=== PATIENT | female | born 1950 | race African-American/Black ===

== ENCOUNTER 2016-09-17 16:30 | Inpatient (IN) | payer MEDICARE, MEDICAID ==
[~2016-09-17] VITALS: Ht 165.1 cm; Wt 109.8 kg
[~2016-09-17 16:30] MED LIST: ALPR0.5T96 PO; BUDE6HFA IH; DIGO250T4 PO; DILT240C91 PO; DIPH25CA83 PO; GABA-531 PO; HYDR-4005 PO; HYDR-519 PO; LISI10TA5 PO; RIVA20TA PO
[2016-09-17 17:44] VITALS: BP 122/78
[2016-09-17] MEDS ORDERED: ONDANSETRON HCL 4MG/2ML VIAL IV PRN (18:00)
[2016-09-17] MEDS ORDERED: IPRATROPIUM/ALBUTEROL 0.5-3(2.5)MG/3ML NEB HHN PRN (18:00)
[2016-09-17 18:22] VITALS: BP 122/78
[2016-09-17 20:00] VITALS: BP 108/81
[2016-09-17] MEDS: BUDESONIDE 0.5MG/2ML NEB HHN SCH (20:07)
[2016-09-17] MEDS: IPRATROPIUM/ALBUTEROL 0.5-3(2.5)MG/3ML NEB HHN SCH (20:08)
[2016-09-17 20:20] VITALS: BP 126/88
[2016-09-17] MEDS: FAMOTIDINE 20MG TABLET PO SCH (20:20)
[2016-09-17] MEDS: HYDROCODONE/ACETAMINOPHEN 10/325MG TABLET PO PRN (20:23)
[2016-09-17] MEDS: HYDRALAZINE HCL 50MG TABLET PO SCH (22:12)
[2016-09-17 22:15] VITALS: BP 126/91
[2016-09-17] MEDS: DILTIAZEM HCL 90MG TABLET PO SCH (22:58)
[2016-09-17 23:00] VITALS: BP 113/79
[2016-09-18] MEDS: IPRATROPIUM/ALBUTEROL 0.5-3(2.5)MG/3ML NEB HHN SCH ×6 (00:41→20:24)
[2016-09-18] MEDS: DILTIAZEM HCL 90MG TABLET PO SCH ×3 (05:50→22:00)
[2016-09-18] MEDS: HYDROCODONE/ACETAMINOPHEN 10/325MG TABLET PO PRN ×2 (05:51→22:18)
[2016-09-18 08:00] VITALS: BP 113/73
[2016-09-18] MEDS: HYDRALAZINE HCL 50MG TABLET PO SCH ×2 (08:30→21:00)
[2016-09-18] MEDS ORDERED: DIPHENHYDRAMINE 50MG CAPSULE PO PRN (08:30)
[2016-09-18] MEDS: FUROSEMIDE 40MG TABLET PO SCH (08:53)
[2016-09-18] MEDS: PREDNISONE 20MG TABLET PO SCH ×2 (08:53→17:00)
[2016-09-18] MEDS: FAMOTIDINE 20MG TABLET PO SCH ×2 (08:53→22:16)
[2016-09-18] MEDS: DOCUSATE SODIUM 100MG CAPSULE PO SCH ×2 (08:53→17:00)
[2016-09-18] MEDS: BUDESONIDE 0.5MG/2ML NEB HHN SCH ×2 (09:07→20:24)
[2016-09-18] MEDS: MORPHINE SULFATE 2 MG/ML CPJ (NOT FOR IM USE) IV PRN (11:24)
[2016-09-18] MEDS: RIVAROXABAN 20 MG TABLET PO SCH (17:00)
[2016-09-18 20:36] VITALS: BP 100/73
[2016-09-19] MEDS: IPRATROPIUM/ALBUTEROL 0.5-3(2.5)MG/3ML NEB HHN SCH ×7 (00:19→23:59)
[2016-09-19] MEDS: BUDESONIDE 0.5MG/2ML NEB HHN SCH ×3 (06:00→20:19)
[2016-09-19] MEDS: DILTIAZEM HCL 90MG TABLET PO SCH ×3 (06:00→22:48)
[2016-09-19 08:00] VITALS: BP 110/70
[2016-09-19] MEDS: FUROSEMIDE 40MG TABLET PO SCH (09:08)
[2016-09-19] MEDS: HYDRALAZINE HCL 50MG TABLET PO SCH ×2 (09:08→22:36)
[2016-09-19] MEDS: DOCUSATE SODIUM 100MG CAPSULE PO SCH ×2 (09:08→17:24)
[2016-09-19] MEDS: PREDNISONE 20MG TABLET PO SCH ×2 (09:08→17:24)
[2016-09-19] MEDS: FAMOTIDINE 20MG TABLET PO SCH ×2 (09:08→22:49)
[2016-09-19] MEDS: MORPHINE SULFATE 2 MG/ML CPJ (NOT FOR IM USE) IV PRN ×2 (11:40→23:00)
[2016-09-19] MEDS: RIVAROXABAN 20 MG TABLET PO SCH (17:24)
[2016-09-19] MEDS: HYDROCODONE/ACETAMINOPHEN 10/325MG TABLET PO PRN (17:25)
[2016-09-19 20:00] VITALS: BP 122/82
[2016-09-20] MEDS: IPRATROPIUM/ALBUTEROL 0.5-3(2.5)MG/3ML NEB HHN SCH ×5 (03:37→21:12)
[2016-09-20] MEDS: DILTIAZEM HCL 90MG TABLET PO SCH ×3 (05:33→21:11)
[2016-09-20 08:00] VITALS: BP 113/84
[2016-09-20] MEDS: BUDESONIDE 0.5MG/2ML NEB HHN SCH ×2 (08:15→21:13)
[2016-09-20] MEDS: FAMOTIDINE 20MG TABLET PO SCH ×2 (09:03→21:10)
[2016-09-20] MEDS: DOCUSATE SODIUM 100MG CAPSULE PO SCH ×2 (09:03→17:12)
[2016-09-20] MEDS: HYDRALAZINE HCL 50MG TABLET PO SCH ×2 (09:03→21:00)
[2016-09-20] MEDS: FUROSEMIDE 40MG TABLET PO SCH (09:03)
[2016-09-20] MEDS: PREDNISONE 20MG TABLET PO SCH ×2 (09:03→17:12)
[2016-09-20] MEDS: LACTULOSE 20G/30ML UDC PO PRN (09:04)
[2016-09-20] MEDS: MORPHINE SULFATE 2 MG/ML CPJ (NOT FOR IM USE) IV PRN ×2 (09:23→23:10)
[2016-09-20] MEDS: HYDROCODONE/ACETAMINOPHEN 10/325MG TABLET PO PRN (12:34)
[2016-09-20] MEDS: NA PHOS,M-B/NA PHOS,DI-BA ENEMA 118ML PR PRN (16:14)
[2016-09-20] MEDS: RIVAROXABAN 20 MG TABLET PO SCH (17:12)
[2016-09-20 20:00] VITALS: BP 98/71
[2016-09-20 23:12] VITALS: BP 117/79
[2016-09-21] MEDS: IPRATROPIUM/ALBUTEROL 0.5-3(2.5)MG/3ML NEB HHN SCH ×7 (00:13→21:10)
[2016-09-21] MEDS: DILTIAZEM HCL 90MG TABLET PO SCH ×3 (05:33→21:58)
[2016-09-21] MEDS: BUDESONIDE 0.5MG/2ML NEB HHN SCH ×2 (07:45→21:10)
[2016-09-21 08:00] VITALS: BP 107/71
[2016-09-21] MEDS: DOCUSATE SODIUM 100MG CAPSULE PO SCH ×2 (10:33→17:15)
[2016-09-21] MEDS: PREDNISONE 20MG TABLET PO SCH ×2 (10:33→17:15)
[2016-09-21] MEDS: FAMOTIDINE 20MG TABLET PO SCH ×2 (10:33→21:57)
[2016-09-21] MEDS: FUROSEMIDE 40MG TABLET PO SCH (10:34)
[2016-09-21] MEDS: HYDROCODONE/ACETAMINOPHEN 10/325MG TABLET PO PRN (10:35)
[2016-09-21] MEDS: HYDRALAZINE HCL 50MG TABLET PO SCH ×2 (11:25→21:00)
[2016-09-21] MEDS: RIVAROXABAN 20 MG TABLET PO SCH (17:15)
[2016-09-21 20:00] VITALS: BP 99/64
[2016-09-21] MEDS: MIRTAZAPINE 15MG TABLET PO SCH (21:57)
[2016-09-22] MEDS: IPRATROPIUM/ALBUTEROL 0.5-3(2.5)MG/3ML NEB HHN SCH ×6 (00:53→21:00)
[2016-09-22] MEDS: DILTIAZEM HCL 90MG TABLET PO SCH ×3 (06:00→22:00)
[2016-09-22 08:00] VITALS: BP 110/74
[2016-09-22] MEDS: HYDRALAZINE HCL 50MG TABLET PO SCH ×2 (08:42→20:29)
[2016-09-22] MEDS: DOCUSATE SODIUM 100MG CAPSULE PO SCH ×2 (08:43→16:57)
[2016-09-22] MEDS: PREDNISONE 20MG TABLET PO SCH ×2 (08:43→16:57)
[2016-09-22] MEDS: FAMOTIDINE 20MG TABLET PO SCH ×2 (08:43→20:28)
[2016-09-22] MEDS: FUROSEMIDE 40MG TABLET PO SCH (08:43)
[2016-09-22] MEDS: HYDROCODONE/ACETAMINOPHEN 10/325MG TABLET PO PRN ×3 (08:44→20:30)
[2016-09-22] MEDS: RIVAROXABAN 20 MG TABLET PO SCH (16:56)
[2016-09-22 20:00] VITALS: BP 130/95
[2016-09-22] MEDS: MIRTAZAPINE 15MG TABLET PO SCH (20:28)
[2016-09-22] MEDS: BUDESONIDE 0.5MG/2ML NEB HHN SCH (21:01)
[2016-09-23] MEDS: IPRATROPIUM/ALBUTEROL 0.5-3(2.5)MG/3ML NEB HHN SCH ×6 (00:55→19:57)
[2016-09-23] MEDS: HYDROCODONE/ACETAMINOPHEN 10/325MG TABLET PO PRN ×4 (04:02→22:04)
[2016-09-23] MEDS: BUDESONIDE 0.5MG/2ML NEB HHN SCH ×2 (07:25→19:56)
[2016-09-23 08:00] VITALS: BP 114/82
[2016-09-23] MEDS: PREDNISONE 20MG TABLET PO SCH ×2 (08:36→17:10)
[2016-09-23] MEDS: FAMOTIDINE 20MG TABLET PO SCH ×2 (08:36→22:03)
[2016-09-23] MEDS: FUROSEMIDE 40MG TABLET PO SCH (08:36)
[2016-09-23] MEDS: DOCUSATE SODIUM 100MG CAPSULE PO SCH ×2 (08:36→17:10)
[2016-09-23] MEDS: HYDRALAZINE HCL 50MG TABLET PO SCH ×2 (09:00→21:00)
[2016-09-23] MEDS: MORPHINE SULFATE 2 MG/ML CPJ (NOT FOR IM USE) IV PRN ×2 (13:08→13:59)
[2016-09-23] MEDS: DILTIAZEM HCL 90MG TABLET PO SCH ×3 (14:53→22:00)
[2016-09-23] MEDS: RIVAROXABAN 20 MG TABLET PO SCH (17:10)
[2016-09-23 20:00] VITALS: BP 93/64
[2016-09-23] MEDS: MIRTAZAPINE 15MG TABLET PO SCH (22:03)
[2016-09-24] MEDS: IPRATROPIUM/ALBUTEROL 0.5-3(2.5)MG/3ML NEB HHN SCH ×6 (00:27→20:59)
[2016-09-24] MEDS: DILTIAZEM HCL 90MG TABLET PO SCH ×3 (06:00→21:55)
[2016-09-24] MEDS: BUDESONIDE 0.5MG/2ML NEB HHN SCH ×2 (07:36→20:59)
[2016-09-24 08:00] VITALS: BP 118/90
[2016-09-24] MEDS: PREDNISONE 20MG TABLET PO SCH ×2 (09:02→16:41)
[2016-09-24] MEDS: DOCUSATE SODIUM 100MG CAPSULE PO SCH ×2 (09:02→16:41)
[2016-09-24] MEDS: HYDRALAZINE HCL 50MG TABLET PO SCH ×2 (09:03→21:00)
[2016-09-24] MEDS: FUROSEMIDE 40MG TABLET PO SCH (09:03)
[2016-09-24] MEDS: FAMOTIDINE 20MG TABLET PO SCH ×2 (09:03→21:54)
[2016-09-24] MEDS: HYDROCODONE/ACETAMINOPHEN 10/325MG TABLET PO PRN ×3 (09:04→20:33)
[2016-09-24] MEDS: RIVAROXABAN 20 MG TABLET PO SCH (16:41)
[2016-09-24 20:00] VITALS: BP 114/84
[2016-09-24] MEDS: MIRTAZAPINE 15MG TABLET PO SCH (21:53)
[2016-09-25] MEDS: IPRATROPIUM/ALBUTEROL 0.5-3(2.5)MG/3ML NEB HHN SCH ×6 (00:45→21:05)
[2016-09-25] MEDS: LACTULOSE 20G/30ML UDC PO PRN (01:46)
[2016-09-25] MEDS: DILTIAZEM HCL 90MG TABLET PO SCH ×3 (06:28→22:00)
[2016-09-25] MEDS: BUDESONIDE 0.5MG/2ML NEB HHN SCH ×2 (07:29→21:05)
[2016-09-25 08:00] VITALS: BP 121/80
[2016-09-25] MEDS: FUROSEMIDE 40MG TABLET PO SCH (09:15)
[2016-09-25] MEDS: HYDRALAZINE HCL 50MG TABLET PO SCH ×2 (09:15→21:00)
[2016-09-25] MEDS: HYDROCODONE/ACETAMINOPHEN 10/325MG TABLET PO PRN ×3 (09:15→22:18)
[2016-09-25] MEDS: DOCUSATE SODIUM 100MG CAPSULE PO SCH ×2 (09:15→17:36)
[2016-09-25] MEDS: FAMOTIDINE 20MG TABLET PO SCH ×2 (09:15→22:15)
[2016-09-25] MEDS: PREDNISONE 20MG TABLET PO SCH ×2 (09:15→17:36)
[2016-09-25] MEDS: NA PHOS,M-B/NA PHOS,DI-BA ENEMA 118ML PR PRN (14:32)
[2016-09-25] MEDS: RIVAROXABAN 20 MG TABLET PO SCH (17:36)
[2016-09-25 20:00] VITALS: BP 113/85
[2016-09-25] MEDS: MIRTAZAPINE 15MG TABLET PO SCH (22:15)
[2016-09-26] MEDS: IPRATROPIUM/ALBUTEROL 0.5-3(2.5)MG/3ML NEB HHN SCH ×6 (00:22→19:53)
[2016-09-26] MEDS: DILTIAZEM HCL 90MG TABLET PO SCH ×3 (06:12→21:38)
[2016-09-26 08:00] VITALS: BP 95/59
[2016-09-26] MEDS: DOCUSATE SODIUM 100MG CAPSULE PO SCH ×2 (08:09→17:29)
[2016-09-26] MEDS: PREDNISONE 20MG TABLET PO SCH ×2 (08:09→17:30)
[2016-09-26] MEDS: FUROSEMIDE 40MG TABLET PO SCH (08:09)
[2016-09-26] MEDS: FAMOTIDINE 20MG TABLET PO SCH ×2 (08:09→21:38)
[2016-09-26] MEDS: BUDESONIDE 0.5MG/2ML NEB HHN SCH ×2 (08:11→19:53)
[2016-09-26] MEDS: HYDRALAZINE HCL 50MG TABLET PO SCH ×2 (09:00→21:37)
[2016-09-26] MEDS: HYDROCODONE/ACETAMINOPHEN 10/325MG TABLET PO PRN ×3 (09:06→23:31)
[2016-09-26] MEDS: RIVAROXABAN 20 MG TABLET PO SCH (17:30)
[2016-09-26 20:00] VITALS: BP 125/79
[2016-09-26 21:02] LABS: HEMATOCRIT. 37.1 % (36.0-48.0); HEMOGLOBIN. 11.8 g/dL (12.0-16.0); MEAN CORPUSCULAR HGB CONC 31.7 g/dL (31.0-37.0); MEAN CORPUSCULAR VOLUME 78.8 fL (81.0-99.0); MEAN PLATELET VOLUME 8.5 fl (7.4-10.4); PLATELET 381 x1000/uL (130-400); RED BLOOD CELL COUNT 4.71 mill/uL (4.2-5.4); RED CELL DISTRIBUTION WIDTH 16.4 % (11.6-14.6); WHITE BLOOD COUNT 27.8 x1000/uL (4.5-11.0)
[2016-09-26 21:08] LABS: DIFFERENTIAL COMMENT 1
[2016-09-26 21:17] LABS: ANION GAP 13; CALCIUM 8.2 mg/dL (8.5-10.1); CARBON DIOXIDE 33 mEq/L (21-32); CHLORIDE 94 mEq/L (98-107); INDEX HEMOLYSI 1 (1-3); INDEX ICTERIC 1 (1-4); INDEX LIPEMIC 1 (1-3); UREA NITROGEN BLOOD 26 mg/dL (7-21); eGFR > 60 mL/min (>60)
[2016-09-26 21:36] LABS: ANISOCYTOSIS 1+; PLATELET ESTIMATE NORMAL
[2016-09-26 21:38] LABS: HYPOCHROMASIA 1+
[2016-09-26] MEDS: MIRTAZAPINE 15MG TABLET PO SCH (21:38)
[2016-09-27] MEDS: IPRATROPIUM/ALBUTEROL 0.5-3(2.5)MG/3ML NEB HHN SCH ×7 (00:14→23:59)
[2016-09-27] MEDS: DILTIAZEM HCL 90MG TABLET PO SCH ×3 (06:00→21:14)
[2016-09-27] MEDS: BUDESONIDE 0.5MG/2ML NEB HHN SCH ×2 (07:37→19:53)
[2016-09-27 08:00] VITALS: BP 106/68
[2016-09-27] MEDS: HYDROCODONE/ACETAMINOPHEN 10/325MG TABLET PO PRN ×2 (08:13→13:27)
[2016-09-27] MEDS: FUROSEMIDE 40MG TABLET PO SCH (08:13)
[2016-09-27] MEDS: DOCUSATE SODIUM 100MG CAPSULE PO SCH ×2 (08:13→17:23)
[2016-09-27] MEDS: PREDNISONE 20MG TABLET PO SCH ×2 (08:13→17:24)
[2016-09-27] MEDS: FAMOTIDINE 20MG TABLET PO SCH ×2 (08:13→20:19)
[2016-09-27] MEDS: HYDRALAZINE HCL 50MG TABLET PO SCH ×2 (08:16→20:19)
[2016-09-27] MEDS ORDERED: PIPERACILLIN/TAZ 3.375G PREMIX 50 ML IV SCH ×2 (12:30→16:00)
[2016-09-27] MEDS ORDERED: DEXTROSE 5% IV NR (13:00)
[2016-09-27] MEDS ORDERED: WATER IV NR (13:00)
[2016-09-27] MEDS ORDERED: VANCOMYCIN IV NR (13:00)
[2016-09-27] MEDS: RIVAROXABAN 20 MG TABLET PO SCH (17:24)
[2016-09-27 20:00] VITALS: BP 106/73
[2016-09-27] MEDS: MIRTAZAPINE 15MG TABLET PO SCH (20:19)
[2016-09-28] MEDS: PIPERACILLIN/TAZ 3.375G PREMIX 50 ML IV SCH ×4 (00:45→17:13)
[2016-09-28 00:56] VITALS: BP 98/72
[2016-09-28] MEDS ORDERED: VANCOMYCIN 750 MG PREMIX 150 ML IV SCH (01:00)
[2016-09-28] MEDS: HYDROCODONE/ACETAMINOPHEN 10/325MG TABLET PO PRN (01:58)
[2016-09-28] MEDS: IPRATROPIUM/ALBUTEROL 0.5-3(2.5)MG/3ML NEB HHN SCH ×5 (04:50→20:45)
[2016-09-28 05:04] LABS: CLARITY URINE CLEAR (CLEAR); COLOR URINE YELLOW (YELLOW); GLUCOSE URINE NEGATIVE (NEGATIVE); KETONES URINE NEGATIVE (NEGATIVE); LEUKOCYTE ESTERASE URINE NEGATIVE (NEGATIVE); NITRITE URINE NEGATIVE (NEGATIVE); OCCULT BLOOD URINE NEGATIVE (NEGATIVE); PROTEIN URINE TRACE (NEGATIVE); SPECIFIC GRAVITY URINE 1.024 (1.005-1.030)
[2016-09-28] MEDS: DILTIAZEM HCL 90MG TABLET PO SCH ×4 (05:39→22:00)
[2016-09-28 05:51] LABS: BACTERIA URINE 1+; SQUAMOUS EPITHELIAL CELL URINE 1+ /lpf (RARE/1+)
[2016-09-28 06:14] LABS: HEMATOCRIT. 37.4 % (36.0-48.0); HEMOGLOBIN. 12.1 g/dL (12.0-16.0); MEAN CORPUSCULAR HEMOGLOBIN 25.2 pg (28.0-32.0); MEAN CORPUSCULAR HGB CONC 32.2 g/dL (31.0-37.0); MEAN CORPUSCULAR VOLUME 78.2 fL (81.0-99.0); MEAN PLATELET VOLUME 8.9 fl (7.4-10.4); PLATELET 342 x1000/uL (130-400); RED BLOOD CELL COUNT 4.78 mill/uL (4.2-5.4); RED CELL DISTRIBUTION WIDTH 16.4 % (11.6-14.6); WHITE BLOOD COUNT 32.6 x1000/uL (4.5-11.0)
[2016-09-28] MEDS: BUDESONIDE 0.5MG/2ML NEB HHN SCH ×2 (07:26→20:45)
[2016-09-28 07:30] LABS: ANION GAP 15; CALCIUM 8.3 mg/dL (8.5-10.1); CARBON DIOXIDE 28 mEq/L (21-32); CHLORIDE 94 mEq/L (98-107); INDEX HEMOLYSI 1 (1-3); INDEX ICTERIC 1 (1-4); INDEX LIPEMIC 1 (1-3); UREA NITROGEN BLOOD 15 mg/dL (7-21); eGFR > 60 mL/min (>60)
[2016-09-28 07:59] LABS: DIFFERENTIAL COMMENT 1
[2016-09-28 08:00] VITALS: BP 99/61
[2016-09-28] MEDS: FAMOTIDINE 20MG TABLET PO SCH ×2 (08:10→22:04)
[2016-09-28] MEDS: PREDNISONE 20MG TABLET PO SCH (08:10)
[2016-09-28] MEDS: DOCUSATE SODIUM 100MG CAPSULE PO SCH ×2 (08:11→17:00)
[2016-09-28] MEDS: FUROSEMIDE 40MG TABLET PO SCH (08:11)
[2016-09-28] MEDS: VANCOMYCIN 1250MG in DEXTROSE 5% WATER 250ML IV SCH (08:12)
[2016-09-28] MEDS: HYDRALAZINE HCL 50MG TABLET PO SCH ×2 (08:23→21:00)
[2016-09-28 16:59] LABS: PLATELET ESTIMATE NORMAL
[2016-09-28] MEDS: RIVAROXABAN 20 MG TABLET PO SCH (17:13)
[2016-09-28] MEDS: ACETAMINOPHEN 325MG TABLET PO PRN ×2 (17:13→22:38)
[2016-09-28 20:48] VITALS: BP 112/80
[2016-09-28] MEDS: MIRTAZAPINE 15MG TABLET PO SCH (22:03)
[2016-09-29] MEDS: PIPERACILLIN/TAZ 3.375G PREMIX 50 ML IV SCH ×2 (00:27→06:02)
[2016-09-29] MEDS: IPRATROPIUM/ALBUTEROL 0.5-3(2.5)MG/3ML NEB HHN SCH ×4 (00:34→11:10)
[2016-09-29] MEDS: HYDROCODONE/ACETAMINOPHEN 10/325MG TABLET PO PRN (04:39)
[2016-09-29 05:55] LABS: HEMATOCRIT. 37.7 % (36.0-48.0); HEMOGLOBIN. 12.1 g/dL (12.0-16.0); MEAN CORPUSCULAR HEMOGLOBIN 25.2 pg (28.0-32.0); MEAN CORPUSCULAR VOLUME 78.8 fL (81.0-99.0); PLATELET 296 x1000/uL (130-400); RED BLOOD CELL COUNT 4.79 mill/uL (4.2-5.4); RED CELL DISTRIBUTION WIDTH 16.3 % (11.6-14.6); WHITE BLOOD COUNT 25.3 x1000/uL (4.5-11.0)
[2016-09-29] MEDS: DILTIAZEM HCL 90MG TABLET PO SCH (06:00)
[2016-09-29 06:09] LABS: CHLORIDE 94 mEq/L (98-107); INDEX HEMOLYSI 1 (1-3); INDEX ICTERIC 1 (1-4); INDEX LIPEMIC 1 (1-3)
[2016-09-29 06:13] LABS: ANION GAP 14; CALCIUM 8.2 mg/dL (8.5-10.1); CARBON DIOXIDE 29 mEq/L (21-32); UREA NITROGEN BLOOD 16 mg/dL (7-21); eGFR > 60 mL/min (>60)
[2016-09-29 07:08] LABS: DIFFERENTIAL COMMENT 1
[2016-09-29] MEDS: BUDESONIDE 0.5MG/2ML NEB HHN SCH (07:12)
[2016-09-29 08:00] VITALS: BP 107/71
[2016-09-29] MEDS: VANCOMYCIN 1250MG in DEXTROSE 5% WATER 250ML IV SCH (08:05)
[2016-09-29] MEDS: FAMOTIDINE 20MG TABLET PO SCH (08:06)
[2016-09-29] MEDS: HYDRALAZINE HCL 50MG TABLET PO SCH (08:06)
[2016-09-29] MEDS: FUROSEMIDE 40MG TABLET PO SCH (08:06)
[2016-09-29] MEDS: DOCUSATE SODIUM 100MG CAPSULE PO SCH (08:06)
[2016-09-29] MEDS ORDERED: PREDNISONE 20MG TABLET PO SCH (09:00)
[2016-09-29] MEDS ORDERED: PREDNISONE 20MG TABLET PO NR (10:45)
[2016-09-29 10:55] LABS: ANISOCYTOSIS 1+; PLATELET ESTIMATE NORMAL
[2016-09-29 12:55] VITALS: BP 107/71
[2016-09-29] MEDS: ACETAMINOPHEN 325MG TABLET PO PRN (13:40)
[2016-09-30] MEDS ORDERED: PREDNISONE 20MG TABLET PO SCH (09:00)
== END 2016-09-29 15:02 | disposition short-term general hospital (02) | DRG 551 ==
PROVIDERS: ADMIT Psychiatry & Neurology Neurology; ATTEND Internal Medicine
DX: M48.06 Spinal stenosis, lumbar region (principal); J96.00 Acute respiratory failure, unspecified whether with hypoxia or hypercapnia; Z68.41 Body mass index [BMI] 40.0-44.9, adult; J44.1 Chronic obstructive pulmonary disease with (acute) exacerbation; I50.42 Chronic combined systolic (congestive) and diastolic (congestive) heart failure; I47.2 Ventricular tachycardia; T81.4XXA Infection following a procedure, initial encounter; L03.312 Cellulitis of back [any part except buttock and flank]; E44.0 Moderate protein-calorie malnutrition; E66.2 Morbid (severe) obesity with alveolar hypoventilation; I48.2 Chronic atrial fibrillation; F41.9 Anxiety disorder, unspecified; I11.0 Hypertensive heart disease with heart failure; F14.10 Cocaine abuse, uncomplicated; R26.9 Unspecified abnormalities of gait and mobility; G89.29 Other chronic pain; H52.209 Unspecified astigmatism, unspecified eye; M54.10 Radiculopathy, site unspecified; R74.0 Nonspecific elevation of levels of transaminase and lactic acid dehydrogenase [LDH]; E11.9 Type 2 diabetes mellitus without complications; M48.07 Spinal stenosis, lumbosacral region; B95.61 Methicillin susceptible Staphylococcus aureus infection as the cause of diseases classified elsewhere; Z90.49 Acquired absence of other specified parts of digestive tract; Z98.1 Arthrodesis status; Y83.8 Other surgical procedures as the cause of abnormal reaction of the patient, or of later complication, without mention of misadventure at the time of the procedure
CPT/HCPCS: 36415; 71010; 74000; 80048; 81001; 83605; 84145; 85025; 87040; 87070; 87077; 87086; 87205; 93970; 94640; 94664; 97110; 97116; 97162; 97166; 97530; 97535; A6261; J2270; J2405; J2543; J3370; J7030; J7050; J7060; J7512; J7620; J7626; Q0163

== ENCOUNTER 2016-09-29 16:00 | Inpatient (IN) | payer MEDICARE, MEDICAID ==
[~2016-09-29] VITALS: Ht 165.1 cm; Wt 117.5 kg
[2016-09-29 14:55] VITALS: BP 133/94
[2016-09-29 16:00] VITALS: BP 133/94
[~2016-09-29 16:00] MED LIST changes: -ALPR0.5T96 PO; -BUDE6HFA IH; -DIGO250T4 PO; -DIPH25CA83 PO; -GABA-531 PO; -HYDR-4005 PO; -LISI10TA5 PO
[2016-09-29] MEDS ORDERED: ALBUTEROL (0.083%) 2.5MG/3ML NEB HHN PRN (18:45)
[2016-09-29] MEDS ORDERED: DIPHENHYDRAMINE 50MG CAPSULE PO PRN (18:45)
[2016-09-29] MEDS ORDERED: ACETAMINOPHEN 325MG TABLET PO PRN (18:45)
[2016-09-29] MEDS ORDERED: LACTULOSE 20G/30ML UDC PO PRN (18:45)
[2016-09-29] MEDS: DOCUSATE SODIUM 100MG CAPSULE PO SCH (19:35)
[2016-09-29] MEDS: ONDANSETRON HCL 4MG/2ML VIAL IV PRN ×2 (19:35→20:05)
[2016-09-29 20:00] VITALS: BP 145/79
[2016-09-29] MEDS ORDERED: MIRTAZAPINE 15MG TABLET PO SCH (21:00)
[2016-09-29] MEDS: FAMOTIDINE 20MG TABLET PO SCH (22:47)
[2016-09-29] MEDS: HYDRALAZINE HCL 50MG TABLET PO SCH (22:47)
[2016-09-29] MEDS: DILTIAZEM HCL 90MG TABLET PO SCH (22:48)
[2016-09-29] MEDS: RIVAROXABAN 20 MG TABLET PO SCH (22:48)
[2016-09-29] MEDS: HYDROCODONE/ACETAMINOPHEN 10/325MG TABLET PO PRN (22:53)
[2016-09-29] MEDS: PIPERACILLIN/TAZ 3.375G PREMIX 50 ML IV SCH (23:31)
[2016-09-30] VITALS: BP 123/85
[2016-09-30] MEDS: PIPERACILLIN/TAZ 3.375G PREMIX 50 ML IV SCH ×2 (03:53→10:11)
[2016-09-30 04:00] VITALS: BP 111/71
[2016-09-30] MEDS: HYDROCODONE/ACETAMINOPHEN 10/325MG TABLET PO PRN ×2 (04:37→10:11)
[2016-09-30] MEDS: DILTIAZEM HCL 90MG TABLET PO SCH (06:00)
[2016-09-30 06:50] LABS: BASOPHILS % 0.1 % (0.0-2.0); DIFFERENTIAL COMMENT 0; EOSINOPHILS % 0.3 % (0.0-5.0); HEMOGLOBIN. 11.9 g/dL (12.0-16.0); LYMPHOCYTES % 7.2 % (20.0-50.0); MEAN CORPUSCULAR HEMOGLOBIN 25.2 pg (28.0-32.0); MEAN CORPUSCULAR HGB CONC 32.1 g/dL (31.0-37.0); MEAN CORPUSCULAR VOLUME 78.6 fL (81.0-99.0); MEAN PLATELET VOLUME 9.1 fl (7.4-10.4); MONOCYTES % 9.6 % (2.0-8.0); NEUTROPHILS % 82.8 % (40.0-76.0); PLATELET 313 x1000/uL (130-400); RED BLOOD CELL COUNT 4.72 mill/uL (4.2-5.4); RED CELL DISTRIBUTION WIDTH 16.5 % (11.6-14.6); WHITE BLOOD COUNT 19.1 x1000/uL (4.5-11.0)
[2016-09-30 07:20] LABS: ANION GAP 14; CALCIUM 8.3 mg/dL (8.5-10.1); CARBON DIOXIDE 32 mEq/L (21-32); CHLORIDE 93 mEq/L (98-107); INDEX HEMOLYSI 1 (1-3); INDEX ICTERIC 1 (1-4); INDEX LIPEMIC 1 (1-3); UREA NITROGEN BLOOD 17 mg/dL (7-21); eGFR > 60 mL/min (>60)
[2016-09-30 08:00] VITALS: BP_SYST 117; BP_SYST 119; BP_DIAS 76; BP_DIAS 92
[2016-09-30] MEDS ORDERED: POTASSIUM CHLORIDE 20MEQ TABLET SR PO NR (08:37)
[2016-09-30] MEDS ORDERED: FUROSEMIDE 40MG TABLET PO SCH (09:00)
[2016-09-30] MEDS ORDERED: PREDNISONE 20MG TABLET PO SCH (09:00)
[2016-09-30] MEDS ORDERED: VANCOMYCIN 1,250 MG in DEXT 5% WATER 250 ML IV SCH (09:00)
[2016-09-30] MEDS: HYDRALAZINE HCL 50MG TABLET PO SCH (10:09)
[2016-09-30] MEDS: FAMOTIDINE 20MG TABLET PO SCH (10:09)
[2016-09-30] MEDS: DOCUSATE SODIUM 100MG CAPSULE PO SCH (10:09)
[2016-09-30] MEDS: ONDANSETRON HCL 4MG/2ML VIAL IV PRN (10:11)
[2016-09-30 12:00] VITALS: BP 117/92
[2016-09-30 16:00] VITALS: BP 100/81
[2016-09-30] MEDS: RIVAROXABAN 20 MG TABLET PO SCH (18:11)
[2016-09-30 20:00] VITALS: BP 134/98
[2016-09-30] MEDS: MORPHINE SULFATE 2 MG/ML CPJ (NOT FOR IM USE) IV PRN (21:07)
[2016-10-01] VITALS: BP 137/80
[2016-10-01 04:00] VITALS: BP 141/88
[2016-10-01] MEDS: MORPHINE SULFATE 2 MG/ML CPJ (NOT FOR IM USE) IV PRN ×2 (04:08→21:43)
[2016-10-01 06:00] LABS: BASOPHILS % 0.1 % (0.0-2.0); DIFFERENTIAL COMMENT 0; EOSINOPHILS % 0.3 % (0.0-5.0); HEMATOCRIT. 36.5 % (36.0-48.0); HEMOGLOBIN. 11.8 g/dL (12.0-16.0); LYMPHOCYTES % 12.2 % (20.0-50.0); MEAN CORPUSCULAR HEMOGLOBIN 25.1 pg (28.0-32.0); MEAN CORPUSCULAR HGB CONC 32.2 g/dL (31.0-37.0); MEAN CORPUSCULAR VOLUME 77.8 fL (81.0-99.0); MEAN PLATELET VOLUME 9.4 fl (7.4-10.4); MONOCYTES % 10.4 % (2.0-8.0); PLATELET 353 x1000/uL (130-400); RED BLOOD CELL COUNT 4.69 mill/uL (4.2-5.4); RED CELL DISTRIBUTION WIDTH 16.3 % (11.6-14.6); WHITE BLOOD COUNT 14.7 x1000/uL (4.5-11.0)
[2016-10-01 06:30] LABS: ANION GAP 14; CALCIUM 7.9 mg/dL (8.5-10.1); CARBON DIOXIDE 31 mEq/L (21-32); CHLORIDE 93 mEq/L (98-107); INDEX HEMOLYSI 1 (1-3); INDEX ICTERIC 1 (1-4); INDEX LIPEMIC 1 (1-3); UREA NITROGEN BLOOD 19 mg/dL (7-21); eGFR > 60 mL/min (>60)
[2016-10-01 08:00] VITALS: BP 125/95
[2016-10-01] MEDS: PREDNISONE 10MG TABLET PO SCH (08:12)
[2016-10-01] MEDS ORDERED: VANCOMYCIN 1,250 MG in DEXT 5% WATER 250 ML IV SCH (09:00)
[2016-10-01 12:00] VITALS: BP 114/83
[2016-10-01 16:00] VITALS: BP 140/76
[2016-10-01] MEDS: RIVAROXABAN 20 MG TABLET PO SCH (17:27)
[2016-10-01 20:00] VITALS: BP 133/84
[2016-10-01] MEDS ORDERED: VANCOMYCIN 1250MG in DEXTROSE 5% WATER 250ML IV SCH (20:00)
[2016-10-01] MEDS: VANCOMYCIN 1 G PREMIX 200 ML IV SCH (21:42)
[2016-10-02] VITALS: BP 148/98
[2016-10-02] MEDS: MORPHINE SULFATE 2 MG/ML CPJ (NOT FOR IM USE) IV PRN ×3 (02:14→20:36)
[2016-10-02 04:00] VITALS: BP 116/73
[2016-10-02 08:00] VITALS: BP 134/84
[2016-10-02] MEDS: PREDNISONE 10MG TABLET PO SCH (08:46)
[2016-10-02] MEDS: VANCOMYCIN 1 G PREMIX 200 ML IV SCH ×2 (08:47→20:36)
[2016-10-02 12:00] VITALS: BP 136/80
[2016-10-02 16:00] VITALS: BP 139/87
[2016-10-02] MEDS: RIVAROXABAN 20 MG TABLET PO SCH (17:25)
[2016-10-02 20:00] VITALS: BP 128/86
[2016-10-03] VITALS: BP 139/82
[2016-10-03] MEDS: MORPHINE SULFATE 2 MG/ML CPJ (NOT FOR IM USE) IV PRN ×4 (03:28→20:59)
[2016-10-03 04:00] VITALS: BP 144/79
[2016-10-03 05:27] LABS: BASOPHILS % 0.4 % (0.0-2.0); DIFFERENTIAL COMMENT 0; EOSINOPHILS % 0.9 % (0.0-5.0); HEMATOCRIT. 37.9 % (36.0-48.0); HEMOGLOBIN. 12.2 g/dL (12.0-16.0); LYMPHOCYTES % 15.6 % (20.0-50.0); MEAN CORPUSCULAR HEMOGLOBIN 25.1 pg (28.0-32.0); MEAN CORPUSCULAR HGB CONC 32.3 g/dL (31.0-37.0); MEAN CORPUSCULAR VOLUME 77.8 fL (81.0-99.0); MEAN PLATELET VOLUME 8.8 fl (7.4-10.4); MONOCYTES % 11.7 % (2.0-8.0); NEUTROPHILS % 71.4 % (40.0-76.0); PLATELET 326 x1000/uL (130-400); RED BLOOD CELL COUNT 4.87 mill/uL (4.2-5.4); RED CELL DISTRIBUTION WIDTH 16.5 % (11.6-14.6); WHITE BLOOD COUNT 13.4 x1000/uL (4.5-11.0)
[2016-10-03 06:02] LABS: CHLORIDE 93 mEq/L (98-107); INDEX HEMOLYSI 1 (1-3); INDEX ICTERIC 1 (1-4); INDEX LIPEMIC 1 (1-3)
[2016-10-03 06:16] LABS: ANION GAP 16; CALCIUM 8.5 mg/dL (8.5-10.1); CARBON DIOXIDE 26 mEq/L (21-32); UREA NITROGEN BLOOD 11 mg/dL (7-21); eGFR > 60 mL/min (>60)
[2016-10-03 08:00] VITALS: BP 120/80
[2016-10-03] MEDS: PREDNISONE 10MG TABLET PO SCH (09:15)
[2016-10-03] MEDS: VANCOMYCIN 1 G PREMIX 200 ML IV SCH ×2 (09:15→20:58)
[2016-10-03] MEDS ORDERED: ACETAMINOPHEN 325MG TABLET PO PRN (10:15)
[2016-10-03] MEDS ORDERED: DIPHENHYDRAMINE 50MG CAPSULE PO PRN (10:15)
[2016-10-03] MEDS ORDERED: ALBUTEROL (0.083%) 2.5MG/3ML NEB HHN PRN (10:15)
[2016-10-03] MEDS ORDERED: POTASSIUM CHLORIDE 20MEQ TABLET SR PO NR (10:15)
[2016-10-03] MEDS: FUROSEMIDE 40MG TABLET PO SCH (10:55)
[2016-10-03 12:00] VITALS: BP 95/62
[2016-10-03] MEDS: DILTIAZEM HCL 90MG TABLET PO SCH ×2 (14:00→22:00)
[2016-10-03 16:00] VITALS: BP 111/69
[2016-10-03] MEDS: DOCUSATE SODIUM 100MG CAPSULE PO SCH (18:10)
[2016-10-03] MEDS: RIVAROXABAN 20 MG TABLET PO SCH (18:10)
[2016-10-03 20:00] VITALS: BP 107/71
[2016-10-03] MEDS: FAMOTIDINE 20MG TABLET PO SCH (20:58)
[2016-10-03] MEDS: MIRTAZAPINE 15MG TABLET PO SCH (20:58)
[2016-10-03] MEDS: HYDRALAZINE HCL 25MG TABLET PO SCH (21:00)
[2016-10-04] VITALS: BP 130/82
[2016-10-04] MEDS: MORPHINE SULFATE 2 MG/ML CPJ (NOT FOR IM USE) IV PRN ×2 (04:23→17:57)
[2016-10-04 06:25] LABS: HEMATOCRIT. 38.5 % (36.0-48.0); HEMOGLOBIN. 12.4 g/dL (12.0-16.0); MEAN CORPUSCULAR HEMOGLOBIN 25.2 pg (28.0-32.0); MEAN CORPUSCULAR HGB CONC 32.1 g/dL (31.0-37.0); MEAN CORPUSCULAR VOLUME 78.5 fL (81.0-99.0); PLATELET 352 x1000/uL (130-400); RED BLOOD CELL COUNT 4.91 mill/uL (4.2-5.4); RED CELL DISTRIBUTION WIDTH 16.4 % (11.6-14.6); WHITE BLOOD COUNT 14.1 x1000/uL (4.5-11.0)
[2016-10-04] MEDS: DILTIAZEM HCL 90MG TABLET PO SCH ×3 (06:58→22:00)
[2016-10-04 07:00] LABS: ANION GAP 13; CALCIUM 8.6 mg/dL (8.5-10.1); CARBON DIOXIDE 29 mEq/L (21-32); CHLORIDE 96 mEq/L (98-107); INDEX HEMOLYSI 1 (1-3); INDEX ICTERIC 1 (1-4); INDEX LIPEMIC 1 (1-3); UREA NITROGEN BLOOD 14 mg/dL (7-21); eGFR > 60 mL/min (>60)
[2016-10-04 07:59] LABS: DIFFERENTIAL COMMENT 1
[2016-10-04 08:00] VITALS: BP 129/69
[2016-10-04] MEDS: PREDNISONE 10MG TABLET PO SCH (09:36)
[2016-10-04] MEDS: FAMOTIDINE 20MG TABLET PO SCH ×2 (09:36→22:14)
[2016-10-04] MEDS: POTASSIUM CHLORIDE 20MEQ TABLET SR PO SCH (09:36)
[2016-10-04] MEDS: FUROSEMIDE 40MG TABLET PO SCH (09:36)
[2016-10-04] MEDS: DOCUSATE SODIUM 100MG CAPSULE PO SCH ×2 (09:36→17:56)
[2016-10-04] MEDS: VANCOMYCIN 1 G PREMIX 200 ML IV SCH ×2 (09:37→22:14)
[2016-10-04] MEDS: HYDRALAZINE HCL 25MG TABLET PO SCH ×2 (09:37→21:00)
[2016-10-04 12:00] VITALS: BP 103/62
[2016-10-04] MEDS ORDERED: NA PHOS,M-B/NA PHOS,DI-BA ENEMA 118ML PR NR (13:30)
[2016-10-04] MEDS: HYDROCODONE/ACETAMINOPHEN 10/325MG TABLET PO PRN (14:50)
[2016-10-04 16:00] VITALS: BP 111/60
[2016-10-04 16:14] LABS: PLATELET ESTIMATE NORMAL
[2016-10-04] MEDS: RIVAROXABAN 20 MG TABLET PO SCH (17:56)
[2016-10-04 20:00] VITALS: BP 88/71
[2016-10-04] MEDS: MIRTAZAPINE 15MG TABLET PO SCH (22:14)
[2016-10-05] VITALS (36 sets, daily range): BP systolic 94–155; BP diastolic 48–98
[2016-10-05] MEDS: MORPHINE SULFATE 2 MG/ML CPJ (NOT FOR IM USE) IV PRN ×4 (00:12→21:44)
[2016-10-05] MEDS: DILTIAZEM HCL 90MG TABLET PO SCH ×3 (05:50→22:02)
[2016-10-05 07:07] LABS: ANION GAP 13; CALCIUM 8.3 mg/dL (8.5-10.1); CARBON DIOXIDE 28 mEq/L (21-32); CHLORIDE 97 mEq/L (98-107); INDEX HEMOLYSI 3 (1-3); INDEX ICTERIC 1 (1-4); INDEX LIPEMIC 1 (1-3); UREA NITROGEN BLOOD 12 mg/dL (7-21); eGFR > 60 mL/min (>60)
[2016-10-05] MEDS: HYDRALAZINE HCL 25MG TABLET PO SCH ×2 (07:31→21:12)
[2016-10-05] MEDS: DOCUSATE SODIUM 100MG CAPSULE PO SCH ×2 (07:32→16:58)
[2016-10-05] MEDS: PREDNISONE 10MG TABLET PO SCH (07:32)
[2016-10-05] MEDS: POTASSIUM CHLORIDE 20MEQ TABLET SR PO SCH (07:32)
[2016-10-05] MEDS: FAMOTIDINE 20MG TABLET PO SCH ×2 (07:32→21:09)
[2016-10-05] MEDS: FUROSEMIDE 40MG TABLET PO SCH (07:32)
[2016-10-05] MEDS: VANCOMYCIN 1 G PREMIX 200 ML IV SCH ×2 (08:55→21:09)
[2016-10-05 09:20] LABS: BASOPHILS % 0.5 % (0.0-2.0); DIFFERENTIAL COMMENT 0; EOSINOPHILS % 1.6 % (0.0-5.0); HEMATOCRIT. 39.1 % (36.0-48.0); HEMOGLOBIN. 12.6 g/dL (12.0-16.0); LYMPHOCYTES % 19.2 % (20.0-50.0); MEAN CORPUSCULAR HEMOGLOBIN 25.5 pg (28.0-32.0); MEAN CORPUSCULAR HGB CONC 32.2 g/dL (31.0-37.0); MEAN CORPUSCULAR VOLUME 79.3 fL (81.0-99.0); MEAN PLATELET VOLUME 8.8 fl (7.4-10.4); MONOCYTES % 11.5 % (2.0-8.0); NEUTROPHILS % 67.2 % (40.0-76.0); PLATELET 300 x1000/uL (130-400); RED BLOOD CELL COUNT 4.94 mill/uL (4.2-5.4); RED CELL DISTRIBUTION WIDTH 16.8 % (11.6-14.6); WHITE BLOOD COUNT 11.1 x1000/uL (4.5-11.0)
[2016-10-05] MEDS ORDERED: DEXT 5%/0.45% NACL 1000ML 1,000 ML IV SCH (10:00)
[2016-10-05] MEDS ORDERED: GELATIN SPONGE,ABSORBABLE SZ 100 ONE (10:36)
[2016-10-05] MEDS ORDERED: LIDOCAINE HCL/EPINEPHRINE 0.5%-EPI 1:200,000 50 ML VIAL INFIL ONE (10:37)
[2016-10-05] MEDS ORDERED: NORMAL SALINE 0.9% 10 ML SYR ONE (10:37)
[2016-10-05] MEDS ORDERED: THROMBIN (BOVINE) 5000 UNITS/VIAL TOP ONE (10:37)
[2016-10-05] MEDS ORDERED: BACITRACIN 50,000 UNITS/VIAL ONE (10:38)
[2016-10-05] MEDS ORDERED: DEXT 5%/0.45% NACL 1,000 ML IV SCH (11:45)
[2016-10-05] MEDS ORDERED: PROPOFOL 200MG/20ML VIAL IV ONE (14:19)
[2016-10-05] MEDS ORDERED: MIDAZOLAM HCL 2 MG/2 ML VIAL ONE (14:24)
[2016-10-05] MEDS ORDERED: FENTANYL CITRATE/PF 50MCG/ML 5ML VIAL ONE (14:25)
[2016-10-05] MEDS ORDERED: ESMOLOL HCL 10MG/ML 10ML VIAL IV ONE (16:54)
[2016-10-05] MEDS ORDERED: GLYCOPYRROLATE 0.2 MG/ML 2ML VIAL ONE (16:54)
[2016-10-05] MEDS ORDERED: BACITRACIN ZINC 15GM TUBE TOP ONE (17:09)
[2016-10-05] MEDS ORDERED: NICARDIPINE 100 MG in SODIUM CHLORIDE 0.9% 60 ML IV PRN (18:00)
[2016-10-05] MEDS: MIRTAZAPINE 15MG TABLET PO SCH (21:00)
[2016-10-06] VITALS (44 sets, daily range): BP systolic 44–154; BP diastolic 25–96
[2016-10-06] MEDS: MORPHINE SULFATE 2 MG/ML CPJ (NOT FOR IM USE) IV PRN ×4 (01:53→15:27)
[2016-10-06] MEDS: DILTIAZEM HCL 90MG TABLET PO SCH ×3 (06:08→22:00)
[2016-10-06] MEDS: FAMOTIDINE 20MG TABLET PO SCH ×2 (08:05→22:06)
[2016-10-06] MEDS: DOCUSATE SODIUM 100MG CAPSULE PO SCH ×2 (08:06→18:14)
[2016-10-06] MEDS: FUROSEMIDE 40MG TABLET PO SCH (08:06)
[2016-10-06] MEDS: HYDRALAZINE HCL 25MG TABLET PO SCH ×2 (08:06→20:35)
[2016-10-06] MEDS: POTASSIUM CHLORIDE 20MEQ TABLET SR PO SCH (08:06)
[2016-10-06] MEDS: VANCOMYCIN 1 G PREMIX 200 ML IV SCH ×2 (08:07→20:23)
[2016-10-06] MEDS: PREDNISONE 10MG TABLET PO SCH (11:29)
[2016-10-06 15:53] LABS: *AMPHETAMINES SCREEN URINE NEGATIVE (NEGATIVE); *BARBITURATES SCREEN URINE NEGATIVE (NEGATIVE); *BENZODIAZEPINES SCREEN URINE PRESUMTIVE POSITIVE (NEGATIVE); *COCAINE SCREEN URINE NEGATIVE (NEGATIVE); CANNABINOID URINE SCREEN NEGATIVE (NEGATIVE); ECSTASY MDMA SCREEN URINE NEGATIVE (NEGATIVE); METHADONE URINE SCREEN NEGATIVE (NEGATIVE); OPIATES URINE SCREEN PRESUMTIVE POSITIVE (NEGATIVE); PHENCYCLIDINE URINE SCREEN NEGATIVE (NEGATIVE)
[2016-10-06] MEDS: MIRTAZAPINE 15MG TABLET PO SCH (21:00)
[2016-10-06] MEDS: CEFEPIME 1,000 MG in DEXTROSE 5% WATER 50 ML IV SCH (22:01)
[2016-10-07] VITALS (13 sets, daily range): BP systolic 104–150; BP diastolic 50–84
[2016-10-07] MEDS: MORPHINE SULFATE 2 MG/ML CPJ (NOT FOR IM USE) IV PRN ×5 (00:01→19:18)
[2016-10-07] MEDS: DILTIAZEM HCL 90MG TABLET PO SCH (06:00)
[2016-10-07 06:17] LABS: BASOPHILS % 0.4 % (0.0-2.0); DIFFERENTIAL COMMENT 0; EOSINOPHILS % 0.9 % (0.0-5.0); HEMATOCRIT. 32.9 % (36.0-48.0); HEMOGLOBIN. 10.5 g/dL (12.0-16.0); LYMPHOCYTES % 17.7 % (20.0-50.0); MEAN CORPUSCULAR HEMOGLOBIN 24.9 pg (28.0-32.0); MEAN PLATELET VOLUME 8.5 fl (7.4-10.4); MONOCYTES % 8.4 % (2.0-8.0); NEUTROPHILS % 72.6 % (40.0-76.0); PLATELET 264 x1000/uL (130-400); RED BLOOD CELL COUNT 4.22 mill/uL (4.2-5.4); RED CELL DISTRIBUTION WIDTH 16.3 % (11.6-14.6); WHITE BLOOD COUNT 11.1 x1000/uL (4.5-11.0)
[2016-10-07 07:00] LABS: ALANINE AMINOTRANSFERASE 22 IU/L (13-61); ALBUMIN 2.1 g/dL (3.4-5.0); ANION GAP 14; CALCIUM 7.9 mg/dL (8.5-10.1); CARBON DIOXIDE 28 mEq/L (21-32); CHLORIDE 98 mEq/L (98-107); INDEX HEMOLYSI 1 (1-3); INDEX ICTERIC 1 (1-4); INDEX LIPEMIC 1 (1-3); MAGNESIUM 1.6 mg/dL (1.8-2.4); UREA NITROGEN BLOOD 7 mg/dL (7-21); eGFR > 60 mL/min (>60)
[2016-10-07] MEDS: BUDESONIDE 0.5MG/2ML NEB HHN SCH (08:30)
[2016-10-07] MEDS: VANCOMYCIN 1 G PREMIX 200 ML IV SCH ×2 (10:15→20:43)
[2016-10-07] MEDS: FUROSEMIDE 40MG TABLET PO SCH (10:26)
[2016-10-07] MEDS: HYDRALAZINE HCL 25MG TABLET PO SCH ×2 (10:26→21:00)
[2016-10-07] MEDS: DOCUSATE SODIUM 100MG CAPSULE PO SCH ×2 (10:26→17:51)
[2016-10-07] MEDS: POTASSIUM CHLORIDE 20MEQ TABLET SR PO SCH (10:26)
[2016-10-07] MEDS: FAMOTIDINE 20MG TABLET PO SCH ×2 (10:27→21:34)
[2016-10-07] MEDS: PREDNISONE 10MG TABLET PO SCH (10:30)
[2016-10-07] MEDS ORDERED: MAGNESIUM 2 G PREMIX 50 ML IV ONE (11:45)
[2016-10-07] MEDS ORDERED: POTASSIUM CHLORIDE 20MEQ TABLET SR PO NR (12:00)
[2016-10-07] MEDS ORDERED: MAGNESIUM 2 G PREMIX 50 ML IV NR (12:00)
[2016-10-07] MEDS: DILTIAZEM HCL 60MG TABLET PO SCH ×2 (12:36→17:51)
[2016-10-07] MEDS: CEFEPIME 1,000 MG in DEXTROSE 5% WATER 50 ML IV SCH ×2 (12:38→21:33)
[2016-10-07] MEDS: MIRTAZAPINE 15MG TABLET PO SCH (21:34)
[2016-10-08] VITALS: BP 114/89
[2016-10-08] MEDS: DILTIAZEM HCL 60MG TABLET PO SCH ×4 (00:31→17:14)
[2016-10-08] MEDS: HYDROCODONE/ACETAMINOPHEN 10/325MG TABLET PO PRN ×2 (00:39→07:19)
[2016-10-08 04:00] VITALS: BP 104/64
[2016-10-08 07:26] LABS: BASOPHILS % 0.5 % (0.0-2.0); DIFFERENTIAL COMMENT 0; EOSINOPHILS % 1.4 % (0.0-5.0); HEMATOCRIT. 33.7 % (36.0-48.0); HEMOGLOBIN. 10.9 g/dL (12.0-16.0); LYMPHOCYTES % 16.9 % (20.0-50.0); MEAN CORPUSCULAR HEMOGLOBIN 25.6 pg (28.0-32.0); MEAN CORPUSCULAR HGB CONC 32.2 g/dL (31.0-37.0); MEAN CORPUSCULAR VOLUME 79.3 fL (81.0-99.0); MEAN PLATELET VOLUME 8.8 fl (7.4-10.4); MONOCYTES % 7.4 % (2.0-8.0); NEUTROPHILS % 73.8 % (40.0-76.0); PLATELET 245 x1000/uL (130-400); RED BLOOD CELL COUNT 4.25 mill/uL (4.2-5.4); RED CELL DISTRIBUTION WIDTH 16.8 % (11.6-14.6)
[2016-10-08 08:00] VITALS: BP 116/78
[2016-10-08 08:44] LABS: ALANINE AMINOTRANSFERASE 23 IU/L (13-61); ANION GAP 13; CALCIUM 8.3 mg/dL (8.5-10.1); CARBON DIOXIDE 29 mEq/L (21-32); CHLORIDE 97 mEq/L (98-107); INDEX HEMOLYSI 1 (1-3); INDEX ICTERIC 1 (1-4); INDEX LIPEMIC 1 (1-3); UREA NITROGEN BLOOD 10 mg/dL (7-21); eGFR > 60 mL/min (>60)
[2016-10-08] MEDS: PREDNISONE 10MG TABLET PO SCH (09:29)
[2016-10-08] MEDS: POTASSIUM CHLORIDE 20MEQ TABLET SR PO SCH (09:29)
[2016-10-08] MEDS: CEFEPIME 1,000 MG in DEXTROSE 5% WATER 50 ML IV SCH ×2 (09:29→22:01)
[2016-10-08] MEDS: VANCOMYCIN 1 G PREMIX 200 ML IV SCH ×2 (09:29→22:01)
[2016-10-08] MEDS: FUROSEMIDE 40MG TABLET PO SCH (09:30)
[2016-10-08] MEDS: DOCUSATE SODIUM 100MG CAPSULE PO SCH ×2 (09:30→17:00)
[2016-10-08] MEDS: HYDRALAZINE HCL 25MG TABLET PO SCH ×2 (09:30→21:00)
[2016-10-08] MEDS: FAMOTIDINE 20MG TABLET PO SCH ×2 (09:30→22:01)
[2016-10-08 12:00] VITALS: BP 110/73
[2016-10-08] MEDS: MORPHINE SULFATE 2 MG/ML CPJ (NOT FOR IM USE) IV PRN (13:35)
[2016-10-08 16:00] VITALS: BP 93/57
[2016-10-08 20:00] VITALS: BP 101/72
[2016-10-08] MEDS: BUDESONIDE 0.5MG/2ML NEB HHN SCH (20:46)
[2016-10-08] MEDS: MIRTAZAPINE 15MG TABLET PO SCH (22:00)
[2016-10-09] VITALS: BP 111/78
[2016-10-09 04:00] VITALS: BP 104/77
[2016-10-09] MEDS: MORPHINE SULFATE 2 MG/ML CPJ (NOT FOR IM USE) IV PRN (05:46)
[2016-10-09] MEDS: DILTIAZEM HCL 60MG TABLET PO SCH ×3 (05:53→11:21)
[2016-10-09 06:27] LABS: BASOPHILS % 0.6 % (0.0-2.0); DIFFERENTIAL COMMENT 0; EOSINOPHILS % 0.9 % (0.0-5.0); HEMATOCRIT. 35.1 % (36.0-48.0); HEMOGLOBIN. 11.3 g/dL (12.0-16.0); LYMPHOCYTES % 25.2 % (20.0-50.0); MEAN CORPUSCULAR HEMOGLOBIN 25.4 pg (28.0-32.0); MEAN CORPUSCULAR HGB CONC 32.2 g/dL (31.0-37.0); MEAN CORPUSCULAR VOLUME 78.8 fL (81.0-99.0); MEAN PLATELET VOLUME 8.5 fl (7.4-10.4); MONOCYTES % 9.4 % (2.0-8.0); NEUTROPHILS % 63.9 % (40.0-76.0); PLATELET 259 x1000/uL (130-400); RED BLOOD CELL COUNT 4.46 mill/uL (4.2-5.4); RED CELL DISTRIBUTION WIDTH 16.3 % (11.6-14.6)
[2016-10-09 06:31] LABS: ANION GAP 15; CALCIUM 8.3 mg/dL (8.5-10.1); CARBON DIOXIDE 28 mEq/L (21-32); CHLORIDE 96 mEq/L (98-107); INDEX HEMOLYSI 1 (1-3); INDEX ICTERIC 1 (1-4); INDEX LIPEMIC 1 (1-3); UREA NITROGEN BLOOD 7 mg/dL (7-21)
[2016-10-09 06:32] LABS: eGFR > 60 mL/min (>60)
[2016-10-09 08:00] VITALS: BP 118/77
[2016-10-09] MEDS: BUDESONIDE 0.5MG/2ML NEB HHN SCH (08:42)
[2016-10-09] MEDS: HYDRALAZINE HCL 25MG TABLET PO SCH (09:00)
[2016-10-09] MEDS: CEFEPIME 1,000 MG in DEXTROSE 5% WATER 50 ML IV SCH (09:19)
[2016-10-09] MEDS: POTASSIUM CHLORIDE 20MEQ TABLET SR PO SCH (09:20)
[2016-10-09] MEDS: DOCUSATE SODIUM 100MG CAPSULE PO SCH (09:20)
[2016-10-09] MEDS: VANCOMYCIN 1 G PREMIX 200 ML IV SCH (09:20)
[2016-10-09] MEDS: FAMOTIDINE 20MG TABLET PO SCH (09:20)
[2016-10-09] MEDS: FUROSEMIDE 40MG TABLET PO SCH (09:20)
[2016-10-09] MEDS: PREDNISONE 10MG TABLET PO SCH (09:24)
[2016-10-09 12:00] VITALS: BP 106/76
[2016-10-09 14:51] VITALS: BP 106/76
[2016-10-09 16:00] VITALS: BP 100/72
[2016-10-09] MEDS ORDERED: RIVAROXABAN 20 MG TABLET PO SCH (17:00)
[2016-10-09] MEDS ORDERED: norco (19:58)
[2016-10-09] MEDS ORDERED: RIVA20TA (19:58)
[2016-10-09] MEDS ORDERED: albuterol (19:58)
[2016-10-09] MEDS ORDERED: METH4TAB17 (19:58)
[2016-10-09] MEDS ORDERED: BUDE6HFA (19:58)
[2016-10-09] MEDS ORDERED: diltiazem (19:58)
[2016-10-09] MEDS ORDERED: proair (19:58)
[2016-10-09] MEDS ORDERED: digoxin (19:58)
[2016-10-09] MEDS ORDERED: alprazolam (19:58)
[2016-10-09] MEDS ORDERED: LISI10TA5 (19:58)
== END 2016-10-09 17:00 | DRG 856 ==
LOC: 6EST 16:00 → MICUSO 10-05 16:26 → 6EST 10-07 03:45
PROVIDERS: ADMIT Internal Medicine; ATTEND Internal Medicine
PROC: 009U0ZZ Drainage of Spinal Canal, Open Approach (ICD-10-PCS; principal; 2016-10-05 15:00)
DX: T81.4XXA Infection following a procedure, initial encounter (principal); A41.02 Sepsis due to Methicillin resistant Staphylococcus aureus; J96.00 Acute respiratory failure, unspecified whether with hypoxia or hypercapnia; L03.312 Cellulitis of back [any part except buttock and flank]; J44.1 Chronic obstructive pulmonary disease with (acute) exacerbation; Z68.41 Body mass index [BMI] 40.0-44.9, adult; I50.42 Chronic combined systolic (congestive) and diastolic (congestive) heart failure; I50.22 Chronic systolic (congestive) heart failure; L03.90 Cellulitis, unspecified; I42.9 Cardiomyopathy, unspecified; I48.1 Persistent atrial fibrillation; J98.11 Atelectasis; M96.89 Other intraoperative and postprocedural complications and disorders of the musculoskeletal system; L02.212 Cutaneous abscess of back [any part, except buttock and flank]; E66.01 Morbid (severe) obesity due to excess calories; M48.06 Spinal stenosis, lumbar region; E87.6 Hypokalemia; D64.9 Anemia, unspecified; E11.9 Type 2 diabetes mellitus without complications; F17.210 Nicotine dependence, cigarettes, uncomplicated; F19.10 Other psychoactive substance abuse, uncomplicated; Y83.8 Other surgical procedures as the cause of abnormal reaction of the patient, or of later complication, without mention of misadventure at the time of the procedure; E83.51 Hypocalcemia; F14.129 Cocaine abuse with intoxication, unspecified; M54.5 Low back pain; F41.9 Anxiety disorder, unspecified; G89.29 Other chronic pain; I11.0 Hypertensive heart disease with heart failure; I48.2 Chronic atrial fibrillation; Z79.01 Long term (current) use of anticoagulants; Z86.14 Personal history of Methicillin resistant Staphylococcus aureus infection; Z82.3 Family history of stroke; Z83.3 Family history of diabetes mellitus
CPT/HCPCS: 36415; 72148; 80048; 80053; 80202; 80305; 83735; 85025; 86850; 86900; 87070; 87075; 87186; 87205; 88305; 93005; 94664; 97110; 97162; 97164; 97166; 97168; 97530; 97535; A4216; A6261; C1893; J0692; J2250; J2270; J2405; J2543; J2704; J3010; J3370; J3475; J3490; J7040; J7050; J7060; J7512; J7611; J7626

== ENCOUNTER 2016-10-09 17:28 | Inpatient (IN) | payer MEDICARE, MEDICAID ==
[~2016-10-09] VITALS: Ht 165.1 cm; Wt 117.0 kg
[2016-10-09 17:45] VITALS: BP 108/66
[2016-10-09] MEDS ORDERED: HYDROCODONE/ACETAMINOPHEN 5/325MG TABLET PO PRN (18:00)
[2016-10-09] MEDS ORDERED: ACETAMINOPHEN 650MG/20.3ML UDC PO PRN (18:00)
[2016-10-09] MEDS ORDERED: DIPHENHYDRAMINE 50MG CAPSULE PO PRN (19:11)
[2016-10-09] MEDS ORDERED: digoxin (19:58)
[2016-10-09] MEDS ORDERED: diltiazem (19:58)
[2016-10-09] MEDS ORDERED: norco (19:58)
[2016-10-09] MEDS ORDERED: METH4TAB17 (19:58)
[2016-10-09] MEDS ORDERED: LISI10TA5 (19:58)
[2016-10-09] MEDS ORDERED: BUDE6HFA (19:58)
[2016-10-09] MEDS ORDERED: albuterol (19:58)
[2016-10-09] MEDS ORDERED: alprazolam (19:58)
[2016-10-09] MEDS ORDERED: RIVA20TA (19:58)
[2016-10-09] MEDS ORDERED: proair (19:58)
[2016-10-09 20:00] VITALS: BP 103/68
[2016-10-09] MEDS: HYDRALAZINE HCL 25MG TABLET PO SCH (21:00)
[2016-10-09] MEDS ORDERED: CEFEPIME 1,000 MG in DEXTROSE 5% WATER 50 ML IV SCH (21:00)
[2016-10-09] MEDS: MIRTAZAPINE 15MG TABLET PO SCH (21:19)
[2016-10-09] MEDS: FAMOTIDINE 20MG TABLET PO SCH (21:19)
[2016-10-09] MEDS: RIVAROXABAN 20 MG TABLET PO SCH (21:26)
[2016-10-09] MEDS ORDERED: VANCOMYCIN 1 G PREMIX 200 ML IV SCH (22:00)
[2016-10-09] MEDS: HYDROCODONE/ACETAMINOPHEN 5/325MG TABLET PO PRN (23:55)
[2016-10-09] MEDS: DILTIAZEM HCL 60MG TABLET PO SCH (23:55)
[2016-10-10] MEDS: ALBUTEROL (0.083%) 2.5MG/3ML NEB HHN PRN ×2 (01:42→07:22)
[2016-10-10] MEDS: DILTIAZEM HCL 60MG TABLET PO SCH ×3 (06:29→17:35)
[2016-10-10] MEDS: BUDESONIDE 0.5MG/2ML NEB HHN SCH ×3 (07:22→19:45)
[2016-10-10 08:00] VITALS: BP 139/94
[2016-10-10] MEDS: POTASSIUM CHLORIDE 20MEQ TABLET SR PO SCH (08:33)
[2016-10-10] MEDS: CEFEPIME 1,000 MG in DEXTROSE 5% WATER 50 ML IV SCH ×2 (08:34→22:19)
[2016-10-10] MEDS: PREDNISONE 10MG TABLET PO SCH (08:34)
[2016-10-10] MEDS: FAMOTIDINE 20MG TABLET PO SCH ×2 (08:34→22:19)
[2016-10-10] MEDS: DOCUSATE SODIUM 100MG CAPSULE PO SCH ×2 (08:34→17:55)
[2016-10-10] MEDS: HYDRALAZINE HCL 25MG TABLET PO SCH (08:34)
[2016-10-10] MEDS ORDERED: POTASSIUM CHLORIDE 20MEQ TABLET SR PO SCH (09:00)
[2016-10-10] MEDS ORDERED: FUROSEMIDE 40MG TABLET PO SCH (09:00)
[2016-10-10 12:55] VITALS: BP 97/66
[2016-10-10] MEDS: VANCOMYCIN 1 G PREMIX 200 ML IV SCH ×2 (12:58→23:12)
[2016-10-10 16:00] VITALS: BP 103/66
[2016-10-10 16:21] LABS: HEMATOCRIT 34.6 % (36.0-48.0); HEMOGLOBIN 11.2 g/dL (12.0-16.0); MEAN CORPUSCULAR HEMOGLOBIN 25.4 pg (28.0-32.0); MEAN CORPUSCULAR HGB CONC 32.5 g/dL (31.0-37.0); MEAN CORPUSCULAR VOLUME 78.1 fL (81.0-99.0); PLATELET 253 x1000/uL (130-400); RED BLOOD CELL COUNT 4.43 mill/uL (4.2-5.4); RED CELL DISTRIBUTION WIDTH 16.6 % (11.6-14.6); WHITE BLOOD COUNT 9.3 x1000/uL (4.5-11.0)
[2016-10-10 16:27] LABS: CHLORIDE 100 mEq/L (98-107); INDEX HEMOLYSI 1 (1-3); INDEX ICTERIC 1 (1-4); INDEX LIPEMIC 1 (1-3)
[2016-10-10 16:34] LABS: ANION GAP 14; CALCIUM 8.2 mg/dL (8.5-10.1); CARBON DIOXIDE 27 mEq/L (21-32); UREA NITROGEN BLOOD 15 mg/dL (7-21); eGFR > 60 mL/min (>60)
[2016-10-10] MEDS: RIVAROXABAN 20 MG TABLET PO SCH (17:55)
[2016-10-10] MEDS: HYDROCODONE/ACETAMINOPHEN 5/325MG TABLET PO PRN (18:11)
[2016-10-10 20:00] VITALS: BP 101/63
[2016-10-10] MEDS: MIRTAZAPINE 15MG TABLET PO SCH (22:19)
[2016-10-11] VITALS: BP 105/71
[2016-10-11 05:10] VITALS: BP 111/69
[2016-10-11] MEDS: HYDROCODONE/ACETAMINOPHEN 5/325MG TABLET PO PRN ×2 (05:17→09:47)
[2016-10-11] MEDS: DILTIAZEM HCL 60MG TABLET PO SCH ×4 (06:48→17:56)
[2016-10-11] MEDS: BUDESONIDE 0.5MG/2ML NEB HHN SCH (07:17)
[2016-10-11] MEDS ORDERED: ONDANSETRON HCL 4MG/2ML VIAL IV PRN (08:15)
[2016-10-11 09:00] VITALS: BP 123/84
[2016-10-11] MEDS: DOCUSATE SODIUM 100MG CAPSULE PO SCH ×2 (09:04→17:55)
[2016-10-11] MEDS: PREDNISONE 10MG TABLET PO SCH (09:04)
[2016-10-11] MEDS: POTASSIUM CHLORIDE 20MEQ TABLET SR PO SCH (09:04)
[2016-10-11] MEDS: FAMOTIDINE 20MG TABLET PO SCH ×2 (09:04→20:46)
[2016-10-11] MEDS: CEFEPIME 1,000 MG in DEXTROSE 5% WATER 50 ML IV SCH ×2 (09:05→20:47)
[2016-10-11] MEDS: VANCOMYCIN 1 G PREMIX 200 ML IV SCH ×2 (09:37→22:02)
[2016-10-11 12:35] VITALS: BP 116/83
[2016-10-11] MEDS ORDERED: GADOBENATE DIMEGLUMINE 529 MG/ML 10ML IV ONE (13:12)
[2016-10-11] MEDS ORDERED: BISACODYL 5MG TABLET PO PRN (15:15)
[2016-10-11] MEDS ORDERED: LACTULOSE 20G/30ML UDC PO PRN (15:15)
[2016-10-11] MEDS ORDERED: LORAZEPAM 2MG/ML CPJ IV NR (17:51)
[2016-10-11 17:55] VITALS: BP 106/85
[2016-10-11] MEDS: RIVAROXABAN 20 MG TABLET PO SCH (17:55)
[2016-10-11] MEDS: MIRTAZAPINE 15MG TABLET PO SCH (20:45)
[2016-10-11] MEDS: MUPIROCIN 2% OINT 22GM NS SCH (20:46)
[2016-10-12] MEDS: DILTIAZEM HCL 60MG TABLET PO SCH ×2 (06:00)
[2016-10-12 06:49] LABS: BASOPHILS % 0.7 % (0.0-2.0); EOSINOPHILS % 1.3 % (0.0-5.0); HEMATOCRIT. 35.7 % (36.0-48.0); HEMOGLOBIN. 11.3 g/dL (12.0-16.0); LYMPHOCYTES % 32.7 % (20.0-50.0); MEAN CORPUSCULAR HEMOGLOBIN 25.5 pg (28.0-32.0); MEAN CORPUSCULAR HGB CONC 31.8 g/dL (31.0-37.0); MEAN CORPUSCULAR VOLUME 80.2 fL (81.0-99.0); MEAN PLATELET VOLUME 9.1 fl (7.4-10.4); MONOCYTES % 13.3 % (2.0-8.0); PLATELET 231 x1000/uL (130-400); RED BLOOD CELL COUNT 4.45 mill/uL (4.2-5.4); RED CELL DISTRIBUTION WIDTH 16.9 % (11.6-14.6); WHITE BLOOD COUNT 7.8 x1000/uL (4.5-11.0)
[2016-10-12 07:33] LABS: ANION GAP 12; CALCIUM 8.2 mg/dL (8.5-10.1); CARBON DIOXIDE 26 mEq/L (21-32); CHLORIDE 105 mEq/L (98-107); INDEX HEMOLYSI 2 (1-3); INDEX ICTERIC 1 (1-4); INDEX LIPEMIC 1 (1-3); UREA NITROGEN BLOOD 10 mg/dL (7-21); eGFR > 60 mL/min (>60)
[2016-10-12 08:03] VITALS: BP 93/62
[2016-10-12] MEDS: CEFEPIME 1,000 MG in DEXTROSE 5% WATER 50 ML IV SCH (08:45)
[2016-10-12] MEDS: MUPIROCIN 2% OINT 22GM NS SCH (09:00)
[2016-10-12] MEDS: PREDNISONE 10MG TABLET PO SCH (09:00)
[2016-10-12] MEDS: POTASSIUM CHLORIDE 20MEQ TABLET SR PO SCH (09:00)
[2016-10-12] MEDS: FAMOTIDINE 20MG TABLET PO SCH (09:00)
[2016-10-12] MEDS: DOCUSATE SODIUM 100MG CAPSULE PO SCH (09:00)
[2016-10-12] MEDS: VANCOMYCIN 1 G PREMIX 200 ML IV SCH (10:16)
[2016-10-12 10:30] VITALS: BP 93/62
== END 2016-10-12 10:25 | disposition short-term general hospital (02) | DRG 551 ==
PROVIDERS: ADMIT Psychiatry & Neurology Neurology; ATTEND Internal Medicine
DX: M48.06 Spinal stenosis, lumbar region (principal); A41.9 Sepsis, unspecified organism; I50.40 Unspecified combined systolic (congestive) and diastolic (congestive) heart failure; T81.4XXA Infection following a procedure, initial encounter; L03.90 Cellulitis, unspecified; I42.9 Cardiomyopathy, unspecified; Z68.41 Body mass index [BMI] 40.0-44.9, adult; L03.818 Cellulitis of other sites; E66.01 Morbid (severe) obesity due to excess calories; F41.9 Anxiety disorder, unspecified; G89.29 Other chronic pain; I48.2 Chronic atrial fibrillation; I11.0 Hypertensive heart disease with heart failure; M43.10 Spondylolisthesis, site unspecified; M54.10 Radiculopathy, site unspecified; B95.62 Methicillin resistant Staphylococcus aureus infection as the cause of diseases classified elsewhere; F14.10 Cocaine abuse, uncomplicated; R74.0 Nonspecific elevation of levels of transaminase and lactic acid dehydrogenase [LDH]; R26.89 Other abnormalities of gait and mobility; E83.51 Hypocalcemia; E87.6 Hypokalemia; J44.9 Chronic obstructive pulmonary disease, unspecified; M47.897 Other spondylosis, lumbosacral region; Z79.01 Long term (current) use of anticoagulants; Z98.1 Arthrodesis status
CPT/HCPCS: 36415; 72158; 80048; 80202; 85025; 85027; 93005; 97110; 97116; 97162; 97167; 97530; 97535; A9577; J0692; J2060; J2405; J3370; J7040; J7060; J7512; J7611; J7626